=== PATIENT | male | born 1950 | race Caucasian/White ===

== ENCOUNTER 2022-06-01 09:58 | Emergency (ER) | payer MEDICARE, SELFPAY ==
[2022-06-01 10:22] VITALS: BP 139/76; PULSE 107; RESP 20; TEMP 36.9; O2SAT 97; BMI 28.6
[2022-06-01 13:21] VITALS: BP 112/70; PULSE 78; RESP 18; O2SAT 98
--- NOTE | 2022-06-01 13:29 | ED.URI ---
HPI - URI/Sore Throat General Time Seen by Provider: 13:30 Date Seen: 06/01/22 Chief Complaint: Cough Stated Complaint: Cough/wheezing/shortness of breath Time Seen by Provider: 06/01/22 13:29 Source: patient, RN notes reviewed and old records reviewed Mode of arrival: ambulatory Limitations: no limitations Related Data Home Medications Medication Instructions Recorded Confirmed albuterol 06/01/22 aspirin 81 mg tablet,delayed 81 mg PO DAILY 06/01/22 06/01/22 release lisinopril 20 mg tablet 20 mg PO DAILY 06/01/22 06/01/22 Allergies Allergy/AdvReac Type Severity Reaction Status Date / Time peanut Allergy Severe Anaphylaxis Verified 06/01/22 10:29 aminophylline Allergy Unknown Verified 06/01/22 10:27 Exam Const: Vital Signs, click to edit/add: Vital Signs - 24 hr 06/01/22 10:22 Temperature 98.4 F Pulse Rate [Pulse Oximeter] 107 H Respiratory Rate 20 Blood Pressure [Le ft Upper Arm] 139/76 Pulse Oximetry 97 Course Vital Signs Vital signs: Initial Vital Signs Temperature 98.4 F 06/01/22 10:22 Temperature Source Temporal Artery Scan 06/01/22 10:22 Pulse Rate 107 H 06/01/22 10:22 Respiratory Rate 20 06/01/22 10:22 Blood Pressure 139/76 06/01/22 10:22 Blood Pressure Mean 97 06/01/22 10:22 Blood Pressure Position Sitting 06/01/22 10:22 Pulse Oximetry 97 06/01/22 10:22 Vital Signs Temperature 98.4 F 06/01/22 10:22 Pulse Rate 107 H 06/01/22 10:22 Respiratory Rate 20 06/01/22 10:22 Blood Pressure 139/76 06/01/22 10:22 Pulse Oximetry 97 06/01/22 10:22 Temperature 98.4 F 06/01/22 10:22 Pulse Rate 107 H 06/01/22 10:22 Respiratory Rate 20 06/01/22 10:22 Blood Pressure 139/76 06/01/22 10:22 Pulse Oximetry 97 06/01/22 10:22 Discharge Plan Discharge Prescriptions: No Action lisinopril 20 mg tablet 20 mg PO DAILY aspirin 81 mg tablet,delayed release (DR/EC) 81 mg PO DAILY albuterol
--- NOTE | 2022-06-01 13:32 | CRLHL7_ITS ---
For Patients: As a result of the Cures Act, medical imaging exams and procedure reports are released immediately into your electronic medical record. You may view this report before your referring provider. If you have questions, please contact your health care provider. INDICATION: Cough TECHNIQUE: Two view chest. No comparison FINDINGS: Normal cardiac mediastinal silhouette. Probable apical fibrotic change. These are standing opacities probably related to atelectasis/fibrotic change subtle infiltrates not completely excluded. No airspace consolidation effusion or pneumothorax. IMPRESSION: 1. Probable upper lobe and basilar fibrotic changes. Basilar strandy opacities probably related to fibrotic change/atelectasis subtle infiltrate not completely excluded. Dictated by Yue Love MD @ 06/01/2022 2:46:48 PM (Electronically Signed)
[2022-06-01 14:24] LABS: PCR FLU A Negative PCR FLU A (Negative); PCR FLU B Negative PCR FLU B (Negative); PCR RSV POSITIVE PCR RSV (Negative)
[2022-06-01 14:28] LABS: SARS PCR* Negative SARS-CoV-2 (Negative)
[2022-06-01] MEDS: IPRAT-ALBUT 0.5-2.5 MG/3 ML NEB 1 NEB IH (14:44)
--- NOTE | 2022-06-01 15:13 | ED.URI ---
HPI - URI/Sore Throat General Date Seen: 06/01/22 Chief Complaint: Cough Stated Complaint: Cough/wheezing/shortness of breath Time Seen by Provider: 06/01/22 13:29 Source: patient Mode of arrival: ambulatory Limitations: no limitations History of Present Illness MD elicited complaint: cough Pertinent past history: asthma Onset (ago): day(s) Consistency: constant Severity: moderate Description of mucous: clear and watery Able to tolerate fluids by mouth: Yes Exacerbating factors: deep breaths Relieving factors: other (Meter dose inhaler) Associated symptoms: denies other symptoms Treatments prior to arrival: none Related Data Home Medications Medication Instructions Recorded Confirmed albuterol 06/01/22 aspirin 81 mg tablet,delayed 81 mg PO DAILY 06/01/22 06/01/22 release lisinopril 20 mg tablet 20 mg PO DAILY 06/01/22 06/01/22 Previous Rx's Medication Instructions Recorded albuterol sulfate 90 mcg/actuation 2 inh inhalation QID PRN shortness 06/01/22 aerosol inhaler of breath or wheezing #6.7 grams azithromycin 250 mg tablet 500 mg PO DAILY #6 tabs 06/01/22 (Zithromax Z-Alton) prednisone 20 mg tablet 20 mg PO BID #10 tabs 06/01/22 Allergies Allergy/AdvReac Type Severity Reaction Status Date / Time peanut Allergy Severe Anaphylaxis Verified 06/01/22 10:29 aminophylline Allergy Unknown Verified 06/01/22 10:27 Review of Systems Status of ROS: Reports: 10 or more systems reviewed and unremarkable except as noted in History and below [facility] Medical History Asthma Social History Smoking Status: Former smoker Do you use any of these nicotine containing products: None How often do you have a drink containing alcohol: never How often do you have six or more drinks on one occasion: Never AUDIT-C Alcohol total score: 0 Exam Narrative: Exam Narrative: Patient is seen in room 4, he speaking to me in full sentences, he is nontoxic, pupils equal round reactive to light, there is no scleral icterus redness TMs are normal, oropharynx is normal, his musical expiratory wheezes in all lung [place] but no signs of respiratory distress, heart sounds are normal, abdomen is soft and slightly pot belly there is no guarding no organomegaly, no tenderness. Extremities reveal no swelling no pitting edema. No redness. Const: Vital Signs, click to edit/add: Vital Signs - 24 hr 06/01/22 10:22 06/01/22 13:21 Temperature 98.4 F Pulse Rate [Pulse Oximeter] 107 H 78 Respiratory Rate 20 18 Blood Pressure [Le ft Upper Arm] 139/76 112/70 Pulse Oximetry 97 98 Documenting provider has reviewed patient's vital signs: yes Course Course Hospital Course: Post done nebulize treatment he was markedly improved with really no wheezes, felt markedly better, explained to him that his RSV is positive, not likely the trigger here. We will put him on some prednisone along with some Zithromax, as he does have the fibrotic changes I could miss an early infiltrate. Vital Signs Vital signs: Initial Vital Signs Temperature 98.4 F 06/01/22 10:22 Temperature Source Temporal Artery Scan 06/01/22 10:22 Pulse Rate 107 H 06/01/22 10:22 Respiratory Rate 20 06/01/22 10:22 Blood Pressure 139/76 06/01/22 10:22 Blood Pressure Mean 97 06/01/22 10:22 Blood Pressure Position Sitting 06/01/22 10:22 Pulse Oximetry 97 06/01/22 10:22 Vital Signs Temperature 98.4 F 06/01/22 10:22 Pulse Rate 107 H 06/01/22 10:22 Respiratory Rate 20 06/01/22 10:22 Blood Pressure 139/76 06/01/22 10:22 Pulse Oximetry 97 06/01/22 10:22 Temperature 98.4 F 06/01/22 10:22 Pulse Rate 78 06/01/22 13:21 Respiratory Rate 18 06/01/22 13:21 Blood Pressure 112/70 06/01/22 13:21 Pulse Oximetry 98 06/01/22 13:21 MDM - URI/Sore Throat MDM Narrative Medical decision making narrative: Life-threatening differential diagnosis includes occluded COPD exacerbation, pulmonary edema, acute coronary syndromes, pulmonary embolism, pneumonia, and pneumothorax. Other differential diagnosis considerations include asthma, bronchitis as well as other etiologies Medical Records Attestation: I reviewed the patient's medical records. Lab Data Attestation: I reviewed the patient's lab results. Labs: Lab Results 06/01/22 Range/Units 13:25 SARS-CoV-2 (PCR) Negative SARS-CoV-2 (Negative) Influenza Type A (PCR) Negative PCR FLU A (Negative) Influenza Type B (PCR) Negative PCR FLU B (Negative) RSV (PCR) POSITIVE PCR RSV A (Negative) Imaging Data Chest x-ray: Attestation: I have reviewed the pertinent imaging results. My impression: Fibrotic changes, Radiologist's impression: Patient: ADRIANNE TURK Facility:?[facility] Patient ID:?[id number] Site Patient ID:?[id number]. Site :?[id number] Study:?XRay Chest 2 VIEW-06/01/2022 2:10:10 PM Ordering Physician:Jese Benton Final Report: INDICATION: Cough TECHNIQUE: Two view chest. No comparison FINDINGS: Normal cardiac mediastinal silhouette. Probable apical fibrotic change. These are standing opacities probably related to atelectasis/fibrotic change subtle infiltrates not completely excluded. No airspace consolidation effusion or pneumothorax. IMPRESSION: 1. Probable upper lobe and basilar fibrotic changes. Basilar strandy opacities probably related to fibrotic change/atelectasis subtle infiltrate not completely excluded. Dictated by Yue Love MD @ 06/01/2022 2:46:48 PM (Electronic Signature) Discharge Plan Discharge Clinical Impression: Cough Patient Disposition: Home, Self-Care Condition: Stable Instructions: Upper Respiratory Infection (DC), Acute Cough (ED) Additional Instructions: Home, rest, use of prednisone along with the Zithromax, and your inhaler increasing shortness of breath cough think please come back and be seen. Prescriptions: New prednisone 20 mg tablet 20 mg PO BID Qty: 10 0RF azithromycin [Zithromax Z-Alton] 250 mg tablet 500 mg PO DAILY Qty: 6 0RF Taper: Z-ALTON 500 mg Q24H for 1 Day and 0 Hour 250 mg Q24H for 4 Days and 0 Hour Rx Instructions: For 250 mg dose pack: take 500 mg today (day 1), then 250 mg for 4 days (days 2-5) orally daily; albuterol sulfate 90 mcg/actuation HFA aerosol inhaler 2 inh inhalation QID PRN (Reason: shortness of breath or wheezing) Qty: 6.7 0RF No Action lisinopril 20 mg tablet 20 mg PO DAILY aspirin 81 mg tablet,delayed release (DR/EC) 81 mg PO DAILY albuterol Follow Up/Referrals: Provider,Not a Local [Primary Care Provider] - Stand Alone Forms: [place] Info Instructions
[2022-06-01 15:30] VITALS: RESP 18
== END 2022-06-01 15:31 | disposition home or self-care (01) ==
PROVIDERS: Emergency Provider Family Medicine
DX: R05.9 Cough, unspecified (principal)
CPT/HCPCS: 71046; 87502; 87634; 87635; 94640; 99283; 99284